=== PATIENT | male | born 1995 | race Caucasian/White ===

== ENCOUNTER 2018-12-17 09:34 | Emergency (ER) | payer MEDICAID, OTHER ==
[2018-12-17 09:52] VITALS: PULSE 77
[2018-12-17] MEDS ORDERED: XYLOCAINE 1%/Epi 1:100000 MDV 20 ML IJ ONE (10:04)
--- NOTE | 2018-12-17 10:11 | ERPHSYRPT ---
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 Pt is a&o3, ambulates and communicates regularly. Pt resp are even and unlabored, denies abd pain, n/v/d. Full ROM of all 4 extremites and injured finger has full ROM. Pt rates pain 2/10. Hands appear dirty. 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 FROM INTACT. NO PARESTHESIAS. TDAP UTD. NO PUS/WARMTH/ERYTHEMA/FEVER PMHX DENIES PSHX DENIES MEDS REVIEWED ALL NKDA DENIES TOB OCC ETOH DENIES ILLICITS EMPLOYED FHX NON CONTRIB Allergies/Adverse Reactions: No Known Drug Allergies Allergy (Verified 12/17/18 09:52) Home Medications: No Home Meds [No Home Meds] 1 jada UD 09/28/13 [History] Hx Tetanus, Diphtheria Vaccination/Date Given: Yes Hx Influenza Vaccination/Date Given: Yes Hx Pneumococcal Vaccination/Date Given: No Immunizations Up to Date: Yes - Review of Systems Constitutional: No Symptoms, No Fever, No Chills, No Fatigue, No Lethargy, No Malaise, No Night Sweats, No Weakness, No Weight Loss Eyes: No Symptoms, No Discharge, No Eye Pain, No Eye Redness, No Itchy, No Photophobia, No Tearing, No Vision Changes, No Double Vision, No Foreign Body Sensation Ears, Nose, & Throat: No Symptoms, No Ear Pain, No Ear Discharge, No Hearing Changes, No Tinnitus, No Nose Congestion, No Nose Discharge, No Epistaxis, No Mouth Pain, No Mouth Swelling, No Throat Pain, No Throat Swelling, No Hoarse, No Painful Swallowing, No Stridor Respiratory: No Symptoms, No Cough, No Cyanosis, No Dyspnea, No Dyspnea on Exertion (DUARTE), No Stridor, No Wheezing Cardiac: No Symptoms, No Chest Pain, No Edema, No Palpitations, No Syncope, No Orthopnea Abdominal/Gastrointestinal: No Symptoms, No Abdominal Pain, No Nausea, No Vomiting, No Diarrhea, No Constipation, No Hematemesis, No Hematochezia, No Melena, No Dysphagia, No Appetite Changes Genitourinary Symptoms: No Symptoms, No Dysuria, No Frequency, No Hematuria, No Hesitancy, No Incontinence, No Urgency, No Urinary Retention, No Flank Pain Musculoskeletal: No Symptoms, No Arthralgias, No Back Pain, No Neck Pain, No Deformity, No Fall, No Injury, No Joint Redness, No Joint Pain, No Joint Swelling, No Myalgias Skin: No Symptoms, Other (LACERATION), No Cellulitis, No Decubiti, No Induration , No Pruritis, No Rash, No Skin Lesions, No Dryness Neurological: No Symptoms, No Dizziness, No Focal Weakness, No Gait Changes, No Headache, No Irritability, No Lethargy, No Paralysis, No Parasthesia, No Seizure , No Sensory Changes, No Speech Changes, No Tics, No Tremors, No Vertigo Psychological: No Symptoms, No Alcohol Abuse, No Drug Abuse, No Anxiety, No Depression, No Suicidal Ideations, No Homicidal Ideations, No Emotional Lability , No Hallucinations, No Memory Loss, No Mood Changes Endocrine: No Symptoms, No Polyuria, No Polydipsia, No Hair Changes, No Cold Intolerance, No Excessive Sweating, No Goiter Hematologic/Lymphatic: No Symptoms, No Anemia, No Blood Clots, No Easy Bleeding , No Gum Bleeding, No Easy Bruising, No Adenopathy Immunological/Allergic: No Symptoms All Other Systems: Reviewed and Negative - Past Medical History Pertinent Past Medical History: No Neurological History: No Pertinent History ENT History: Other (Note history of present illness) Cardiac History: No Pertinent History Respiratory History: No Pertinent History Endocrine Medical History: No Pertinent History Musculoskeletal History: No Pertinent History GI Medical History: No Pertinent History History: No Pertinent History Psycho-Social History: No Pertinent History - Past Surgical History Past Surgical History: No Neuro Surgical History: No Pertinent History Cardiac: No Pertinent History Respiratory: No Pertinent History Gastrointestinal: No Pertinent History Genitourinary: No Pertinent History Male Surgical History: No Pertinent History - Social History Smoking Status: Never smoker Exposure to second hand smoke: No Drug Use: none Patient Lives Alone: No - Nursing Vital Signs Nursing Vital Signs: Initial Vital Signs Temperature 98.5 F 12/17/18 09:41 Pulse Rate 77 12/17/18 09:41 Respiratory Rate 18 12/17/18 09:41 Blood Pressure 162/86 12/17/18 09:41 O2 Sat by Pulse Oximetry 98 12/17/18 09:41 Pain Scale Pain Intensity 6 - Physical Exam General Appearance: no apparent distress, alert Eye Exam: PERRL/EOMI, eyes nml inspection, other (fundi normal amarjit), No scleral icterus, No pale conjunctivae, No photophobia, No EOM palsy/anisocoria Ears, Nose, Throat Exam: normal ENT inspection, TMs normal, pharynx normal, TM abnormal (L), other (uvula midline, floor of mouth soft), No moist mucous membranes, No dry mucous membranes, No TM abnormal (R), No pharyngeal erythema, No tonsillar exudate Neck Exam: normal inspection, non-tender, supple, full range of motion, No meningismus, No mass, No Brudzinski, No Kernig's, No carotid bruit, No JVD, No limited range of motion, No lymphadenopathy, No midline tenderness, No thyromegaly Respiratory Exam: normal breath sounds, lungs clear, airway intact, No chest tenderness, No respiratory distress, No diminished breath sounds, No accessory muscle use, No prolonged expirations, No crackles/rales, No rhonchi, No wheezing , No stridor, No pleural rub Cardiovascular Exam: regular rate/rhythm, normal heart sounds, normal peripheral pulses, capillary refill <2 sec, No murmur, No friction rub, No gallop, No tachycardia, No bradycardia, No irregular, No capillary refill 2-3 sec, No capillary refill >3 sec, No edema, No pulse deficit Gastrointestinal/Abdomen Exam: soft, normal bowel sounds, No tenderness, No distention, No mass, No guarding, No ecchymosis, No pulsatile mass, No rebound, No hernia, No hepatomegaly, No organomegaly, No splenomegaly, No bruit Male Genitalia Exam: normal genitalia Rectal Exam: deferred Back Exam: normal inspection, normal range of motion, other (neg slr amarjit, no sacral anesthesia, dtr 2/4 amrajit patella), No CVA tenderness, No vertebral tenderness, No rash, No decreased range of motion, No muscle spasm, No point tenderness Extremity Exam: normal inspection, normal range of motion, pelvis stable, No amputations, No contusions, No calf tenderness, No deformities, No lacerations, No parasthesia, No paralysis, No inflammation, No joint swelling, No limited range of motion, No pedal edema, No swelling, No tenderness Neurologic Exam: alert, oriented x 3, cooperative, manager service desk II-XII nml as tested, normal mood/affect, nml cerebellar function, nml station & gait, sensation nml, No motor deficits, No sensory deficit, No disoriented, No confusion, No agitation, No uncooperative, No intoxicated appearance, No depressed mood/affect , No motor weakness, No facial droop, No slurred speech, No aphasia, No dysarthria, No abnormal gait, No abnormal cerebellar tests, No abnormal manager service desk II- XII, No EOM palsy Skin Exam: normal color, warm, dry, other (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, FROM INTACT, NVSC INTACT NO CREPITANCE), No rash, No petechiae, No jaundice, No abrasion, No cyanosis, No diaphoresis, No decubitus, No embolic lesions, No ecchymosis, No jaundice, No laceration, No mottled, No pale Lymphatic Exam: No adenopathy SpO2 Interpretation: normal SpO2: 98 O2 Delivery: Room Air Procedures - Laceration/Wound Repair Left Hand Wound Location: Left, hand Wound Length (cm): 1.5 Wound's Depth, Shape: superficial, linear Wound Explored: contaminated Irrigated: Yes Hibiclens Prep: No Anesthesia: local, 1% lidocaine w/ Epi Wound Repaired With: sutures Suture Size/Type: 4-0, nylon Number of Sutures: 3 Layer Closure?: No Sterile Dressing Applied?: Yes Progress: 12/17/18 10:09 WELL TOLERATED - Course Nursing assessment & vital signs reviewed: Yes Ordered Tests: Active Orders 24 hr Category Date Time Status Prepare for Sutures STAT Care 12/17/18 10:04 Active Sutures STAT Care 12/17/18 10:04 Active Wound Care STAT Care 12/17/18 10:04 Active Medication Summary Discontinued Medications Generic Name Dose Route Start Last Admin Trade Name Freq PRN Reason Stop Dose Admin Lidocaine/Epinephrine 5 ml 12/17/18 10:04 12/17/18 10:14 Xylocaine 1%/Epi [id number] Mdv 20 Ml IJ 12/17/18 10:05 5 ml STAT ONE Administration - Progress Progress: improved (findings reviewed with pt. wound care instructions. all questions answered to his satisfaction) - Departure Departure Disposition: Home Clinical Impression: Laceration of left hand Condition: Good Critical Care Time: No Referrals: CADEN WONG [Primary Care Provider] - Instructions: Laceration Repair With Stitches (DC) Additional Instructions: TO ER IF FEVER/REDNESS/SWELLING/PUS FROM WOUND APPLY BACITRACIN TWICE DAILY NO SOAKING OR SWIMMING KEEP CLEAN WITH SOAP AND WATER WOUND CHECK WITH PRIMARY CARE OR URGENT CARE IN 2 DAYS SUTURE REMOVAL WITH PRIMARY CARE OR URGENT CARE IN 7 DAYS.
[2018-12-17] MEDS ORDERED: BACIGUENT PACKET ONE (10:34)
[2018-12-17 10:41] VITALS: BP 151/80; O2SAT 97
[2018-12-17] MEDS ORDERED: BACIGUENT PACKET TP ONE (10:44)
== END 2018-12-17 10:53 | disposition home or self-care (01) ==
LOC: ED 09:34
DX: S61.412A Laceration without foreign body of left hand, initial encounter (principal); W26.8XXA Contact with other sharp object(s), not elsewhere classified, initial encounter; Y93.89 Activity, other specified
CPT/HCPCS: 12001; 99284; A9270-GY